=== PATIENT | female | born 1955 | race Caucasian/White ===

== ENCOUNTER → 2024-06-12 12:59 | Outpatient (REF) | payer MEDICARE, SELFPAY | LOC: HWRAD 12:59 | PROVIDERS: ATTENDING PHYSICIAN Nurse Practitioner Primary Care; FAMILY PHYSICIAN Family Medicine | DX: C43.59 Malignant melanoma of other part of trunk (principal) | CPT/HCPCS: 71046 ==

== ENCOUNTER → 2024-10-19 11:49 | Outpatient (REF) | payer MEDICARE, SELFPAY | LOC: HWWDC 11:49 | PROVIDERS: ATTENDING PHYSICIAN Family Medicine | DX: Z12.31 Encounter for screening mammogram for malignant neoplasm of breast (principal) | CPT/HCPCS: 77063; 77067 ==